=== PATIENT | male | born 1995 | race Caucasian/White ===

== ENCOUNTER 2017-08-11 22:53 | Emergency (ER) | payer OTHER ==
[~2017-08-11] VITALS: Ht 177.8 cm; Wt 66.2 kg
[~2017-08-11 22:53] MED LIST: CONCERTA54 MG PO; LORTAB 10 MG-3473 ML PO; MAGIC MOUTHWASH1 ML MM
[2017-08-11] MEDS ORDERED: PERIDEX473 ML MM (23:28)
[2017-08-11] MEDS ORDERED: XYLOCAINE VISC100 ML PO (23:28)
[2017-08-11 23:45] VITALS: BP 133/87
== END 2017-08-11 23:46 | disposition home or self-care (01) ==
LOC: EME 22:53
DX: K12.1 Other forms of stomatitis (principal); Z88.6 Allergy status to analgesic agent; L51.1 Stevens-Johnson syndrome; F90.9 Attention-deficit hyperactivity disorder, unspecified type
CPT/HCPCS: 99281; 99284; J1100